=== PATIENT | male | born 1990 | race Two or more races ===

== ENCOUNTER 2024-05-21 12:18 | Emergency (ER) | payer OTHER ==
[~2024-05-21] VITALS: Ht 177.8 cm; Wt 94.8 kg
[2024-05-21] MEDS ORDERED: TRAMADOL HCL 50 MG TABLET PO ONE (13:15)
[2024-05-21] MEDS ORDERED: KETO10TA2 PO (15:00)
== END 2024-05-21 15:07 | disposition home or self-care (01) ==
LOC: ER 12:20
DX: M25.561 Pain in right knee (principal); W18.39XA Other fall on same level, initial encounter; Y93.F1 Activity, caregiving, bathing; Y92.012 Bathroom of single-family (private) house as the place of occurrence of the external cause; I10 Essential (primary) hypertension; K57.32 Diverticulitis of large intestine without perforation or abscess without bleeding

== ENCOUNTER → 2024-09-21 | Emergency (ER) | payer OTHER ==
[~2024-09-21] VITALS: Ht 175.3 cm; Wt 93.4 kg
[~2024-09-21] MED LIST: KETO10TA2 PO
== END | disposition left against medical advice (07) ==
LOC: ER 17:15
DX: Z53.21 Procedure and treatment not carried out due to patient leaving prior to being seen by health care provider (principal)

== ENCOUNTER 2024-09-29 19:25 | Emergency (ER) | payer OTHER ==
[~2024-09-29] VITALS: Ht 175.3 cm; Wt 95.3 kg
[2024-09-29] MEDS ORDERED: ORPHENADRINE CITRATE 100 MG TABLET PO ONE (20:45)
[2024-09-29] MEDS ORDERED: DEXAMETHASONE SODIUM PHOSPHATE 4 MG/ML VIAL IM ONE (20:45)
[2024-09-29] MEDS ORDERED: KETOROLAC TROMETHAMINE 60 MG VIAL IM ONE ×2 (20:45→21:33)
[2024-09-29] MEDS ORDERED: DICLOFENAC SODI75 MG PO (20:53)
[2024-09-29] MEDS ORDERED: BACLOFEN10 MG PO (20:53)
[2024-09-29] MEDS ORDERED: DEXAMETHASONE SODIUM PHOSPHATE 4 MG/ML VIAL ONE (21:32)
== END 2024-09-29 23:02 | disposition home or self-care (01) ==
LOC: ER 19:27
DX: M54.50 Low back pain, unspecified (principal)